=== PATIENT | female | born 1960 | race African-American/Black ===

== ENCOUNTER 2017-11-18 19:04 | Emergency (ER) | payer MEDICARE, MEDICAID ==
[~2017-11-18] VITALS: Ht 172.7 cm; Wt 123.0 kg
[2017-11-18] MEDS ORDERED: KETOROLAC 30MG/ML VIAL IM ONE (22:45)
[2017-11-19 00:53] VITALS: BP 132/88
== END 2017-11-19 01:01 | disposition home or self-care (01) ==
LOC: ER 21:01
DX: S30.0XXA Contusion of lower back and pelvis, initial encounter (principal); S80.02XA Contusion of left knee, initial encounter; S80.01XA Contusion of right knee, initial encounter; E11.9 Type 2 diabetes mellitus without complications; W01.0XXA Fall on same level from slipping, tripping and stumbling without subsequent striking against object, initial encounter; Y93.89 Activity, other specified; Y92.89 Other specified places as the place of occurrence of the external cause; Y99.8 Other external cause status
CPT/HCPCS: 72100; 96372; 99284; J1885

== ENCOUNTER → 2018-01-07 | Outpatient (CLI) | payer MEDICARE, MEDICAID ==
[~2018-01-07] MED LIST: GADOBENATE DIMEGLUMINE 529 MG/ML 10ML IV ONE
== END | disposition home or self-care (01) ==
LOC: MRI 12:55
PROVIDERS: ATTEND Psychiatry & Neurology Neurology
DX: E11.39 Type 2 diabetes mellitus with other diabetic ophthalmic complication (principal); H53.8 Other visual disturbances; G31.89 Other specified degenerative diseases of nervous system; R90.82 White matter disease, unspecified
CPT/HCPCS: 70553; A9577

== ENCOUNTER 2023-08-28 10:19 | Emergency (ER) | payer MEDICARE, MEDICAID ==
[~2023-08-28] VITALS: Ht 177.8 cm; Wt 117.0 kg
[2023-08-28 10:27] VITALS: TEMP 98.3; O2SAT 97
[2023-08-28 11:23] VITALS: BP 165/57; PULSE 61; RESP 20
[2023-08-28] MEDS: KETOROLAC 60MG/2ML VIAL IM SCH (11:23)
== END 2023-08-28 15:00 | disposition home or self-care (01) ==
LOC: ER 10:19
DX: M13.861 Other specified arthritis, right knee (principal); E11.9 Type 2 diabetes mellitus without complications; Z98.890 Other specified postprocedural states
CPT/HCPCS: 99283; 73560; 96372; J1885